=== PATIENT | male | born 1940 | race Caucasian/White ===

== ENCOUNTER 2018-02-16 09:27 | Day surgery (SDC) | payer OTHER ==
[2018-02-16] MEDS ORDERED: LR 1,000 ML IV ONE (09:52)
--- NOTE | 2018-02-16 10:08 | PDANEPAE ---
ANE History of Present Illness dysphasia ANE Past Medical History - Cardiovascular History Hx Hypertension: Yes Hx Arrhythmias: Yes Hx Chest Pain: No Hx Coronary Artery / Peripheral Vascular Disease: Yes Hx CHF / Valvular Disease: No Hx Palpitations: No Cardiovascular History Comment: Afib,SSS. - Pulmonary History Hx Recent Upper Respiratory Infection: No Hx Oxygen in Use at Home: Yes O2 in Use at Home (L/minute): 2-3L Hx Sleep Apnea: Yes Sleep Apnea Screening Result - Last Documented: Positive Pulmonary History Comment: Uses 2.L at noc with C-PAP - Neurologic History Hx Cerebrovascular Accident: Yes Hx Dementia: Yes Neurologic History Comment: GLOBAL AMNESIA,TIA'S. VASCULAR DEMENTIA WITH BEHAVIORAL DISTURBANCES - Endocrine History Hx Diabetes: Yes Hypothyroid: No Hyperthyroid: No Obesity: moderate Endocrine History Comment: hx of ATN post op hip surgery - Liver History Hx Hepatic Disorders: No - Neurological & Psychiatric Hx Hx Neurological and Psychiatric Disorders: Yes Neurological / Psychiatric History Comment: dementia,depression and anxiety - Cancer History Hx Cancer: Yes Cancer History Comment: pre-skin CA - Congenital Disorder History Hx Congenital Disorders: No - GI History Hx Gastrointestinal Disorders: Yes Gastrointestinal History Comment: LAP BAND, VOMITING REFLUX. PEPTIC ULCER DISEASE - Other Health History Other Health History: TWO SKIN AREAS ONE ON RIGHT ARM ABOVE ELBOW,LEFT LEG BELOW THE KNEE. SACRAL MASS, DDD,BPH. Has a suprapubic catheter - Chronic Pain History Chronic Pain: Yes (BACK PAIN) - Surgical History Prior Surgeries: AAA repair. Lap-band placement. Hip surgery. TURP ANE Review of Systems Review of systems is: negative Review of Systems: - Exercise capacity METS (RN): 2 METS - Pacemaker Pacemaker Type: Permanent Pacer/Defib Pacemaker Paramedic Rn: [facility] Pacemaker Model: 3262 QUADRA ALLURE Pacemaker Mode: DDDR Date Pacemaker Last Checked: 02/06/18 ANE Patient History - Allergies Allergies/Adverse Reactions: naproxen [From Aleve] Allergy (Verified 02/16/18 10:32) - Home Medications Home medications: home medication list seen and reviewed Home Medications: Allopurinol 02/15/18 [Last Taken 02/16/18] Amiodarone HCl 02/15/18 [Last Taken 02/16/18] Aspirin 81mg (*) 02/15/18 [Last Taken 02/16/18] Atorvastatin Calcium 02/15/18 [Last Taken 02/16/18] Calcium 02/15/18 [Last Taken 02/16/18] Carvedilol 02/15/18 [Last Taken 02/16/18] Citalopram 02/15/18 [Last Taken 02/16/18] Citracal + D 02/15/18 [Last Taken 02/16/18] Donepezil HCl 02/15/18 [Last Taken 02/16/18] Folic Acid 02/15/18 [Last Taken 02/16/18] Furosemide 02/15/18 [Last Taken 02/16/18] Ipratropium 0.03% Nasal 02/15/18 [Last Taken 02/16/18] Losartan Potassium 02/15/18 [Last Taken 02/16/18] Memantine HCl 02/15/18 [Last Taken 02/16/18] Nitrostat 0.4 mg (*) 02/15/18 [Last Taken Unknown] Potassium Chloride 20 mg/15 ml (*) 02/15/18 [Last Taken 02/16/18] Quetiapine Fumarate 02/15/18 [Last Taken Unknown] Senna Lax 02/15/18 [Last Taken 02/16/18] Tramadol HCl 02/15/18 [Last Taken 02/16/18] Pantoprazole Sodium 02/16/18 [Last Taken 02/16/18] - Smoking Hx Smoking Status: Former smoker - Family Anes Hx Family Hx Anesthesia Complications: none ANE Labs/Vital Signs - Labs Result Diagrams: 02/16/18 10:20 - Vital Signs Height: 170.18 cm Weight: 107.501 kg ANE Physical Exam - Airway Neck exam: FROM, short neck Mallampati Score: Class 4 Mouth exam: small mouth opening - Pulmonary Pulmonary: no respiratory distress, clear to auscultation - Cardiovascular Cardiovascular: regular rate and rhythym, no murmur, rub, or gallop - ASA Status ASA Status: IV ANE Anesthesia Plan Anesthesia Plan: GA with mask Total IV Anesthesia: Yes
--- NOTE | 2018-02-16 10:35 | PDGENHP ---
History & Physical Chief Complaint: Dysphagia Pertinent Past, Social, Family History: GLOBAL AMNESIA,TIA'S. VASCULAR DEMENTIA WITH BEHAVIORAL DISTURBANCES Relevant Physical Exam: Lungs clear. Cardiac normal s1s2 Cardiorespiratory Assessment: Proceed with diagnostic EGD with possible dilaiton with anesthesia assistance.
[2018-02-16] MEDS ORDERED: PROPOFOL/EMULSION 500 MG/50 ML BOTTLE IV ONE (10:40)
--- NOTE | 2018-02-16 11:12 | GIREPORT ---
[facility] Surgical Services - Endoscopy Department Patient Name: Arian Lyons Procedure Date: 02/16/2018 10:26 AM Patient Type: Outpatient Attending MD/ ER Physician: Alfred Arroyo MD Procedure: Upper GI endoscopy Indications: Dysphagia, Abnormal UGI series, Nausea with vomiting. Previous lap band (deflated) Providers: Alfred Arroyo MD Medicines: Propofol per Anesthesia Complications: No immediate complications. Description of Procedure: After obtaining informed consent, the endoscope was passed under direct vision. Throughout the procedure, the patient's blood pressure, pulse, and oxygen saturations were monitored continuously. The Endoscope was intro duced through the mouth, and advanced to the second part of duodenum. The [facility] GI endoscopy was accomplished without difficulty. The patient tolerated th e procedure well. Findings: The examined esophagus was moderately tortuous. Esophagogastric landmarks were identified: the gastroesophageal junctio n was found at 36 cm from the incisors. No esophageal stricture identified. A medium-sized hiatal hernia was present. Diffuse moderate inflammation characterized by congestion (edema) and erosions was found in the gastric antrum. Biopsies were taken with a co ld forceps for histology. The examined duodenum was normal. Estimated Blood Loss: Estimated blood loss: none. Estimated blood loss: none. Post Op Diagnosis: - Tortuous esophagus. - Esophagogastric landmarks identified. - Medium-sized hiatal hernia. - Chronic gastritis. Biopsied. - Normal examined duodenum. - No esophageal stricture. Recommendation: - Patient has a contact number available for emergencies. The signs and symptoms of potential delayed complications were discussed with the pat ient. Return to normal activities tomorrow. Written discharge instructions we re provided to the patient. - Follow an antireflux regimen. - Continue present medications. - Consider esophageal manometry. - Return to GI office after studies are complete. - Thank you for allowing me to participate in the care of your patient. Attending Participation: I personally performed the entire procedure. Alfred Arroyo MD Alfred Arroyo MD 02/16/2018 11:12:20 AM This report has been signed electronicallyStbobby Arroyo MD Number of Addenda: 0 Note Initiated On: 02/16/2018 10:26 AM [email or web address]
[2018-02-16] MEDS ORDERED: NALOXONE HCL 0.4 MG/ML INJ IVP PRN (11:15)
--- NOTE | 2018-02-16 11:15 | POSTANESTH ---
Post Anesthetic Evaluation Cardiovascular Status: Normal, Stable Respiratory Status: Normal, Stable Level of Consciousness/Mental Status: Can Participate in Eval, Moderately Sleepy Pain Control: Adequate, Prn Tx Ordered Nausea/Vomiting Control: Adequate, Prn Tx Ordered Complications Possibly Related to Anesthesia: None Noted
[2018-02-16 12:19] VITALS: BP 161/88
== END 2018-02-16 12:16 | disposition home or self-care (01) ==
LOC: FSGY 09:27
PROVIDERS: ATTEND Internal Medicine Gastroenterology
PROC: 0DB68ZX Excision of Stomach, Via Natural or Artificial Opening Endoscopic, Diagnostic (ICD-10-PCS; principal; 2018-02-16 10:45)
PROC: 0DB38ZX Excision of Lower Esophagus, Via Natural or Artificial Opening Endoscopic, Diagnostic (ICD-10-PCS; principal; 2018-02-16 10:45)
DX: K22.4 Dyskinesia of esophagus (principal); K29.50 Unspecified chronic gastritis without bleeding; K44.9 Diaphragmatic hernia without obstruction or gangrene; R22.2 Localized swelling, mass and lump, trunk; I71.4 Abdominal aortic aneurysm, without rupture; I48.91 Unspecified atrial fibrillation; F01.51 Vascular dementia, unspecified severity, with behavioral disturbance; I49.5 Sick sinus syndrome; N40.0 Benign prostatic hyperplasia without lower urinary tract symptoms; I25.10 Atherosclerotic heart disease of native coronary artery without angina pectoris; F32.9 Major depressive disorder, single episode, unspecified; K21.9 Gastro-esophageal reflux disease without esophagitis; E78.2 Mixed hyperlipidemia; I10 Essential (primary) hypertension; G47.33 Obstructive sleep apnea (adult) (pediatric); Z79.01 Long term (current) use of anticoagulants; Z95.0 Presence of cardiac pacemaker; Z86.73 Personal history of transient ischemic attack (TIA), and cerebral infarction without residual deficits
CPT/HCPCS: J2704